=== PATIENT | female | born 1975 | race Caucasian/White ===

== ENCOUNTER → 2016-07-26 | Outpatient (CLI) | payer BC ==
--- NOTE | 2016-07-29 08:37 | MM ---
Reason for exam: screening (asymptomatic). Last mammogram was performed 1 year and 1 month ago. History: Family history of breast cancer in mother at age 38 and breast cancer in paternal grandmother. Physical Findings: A clinical breast exam by your physician is recommended on an annual basis and results should be correlated with mammographic findings. MG Screening Mammo w CAD Bilateral CC and MLO view(s) were taken. Prior study comparison: June 13, 2015, bilateral MG screening mammo w CAD. The breast tissue is heterogeneously dense. This may lower the sensitivity of mammography. There is no discrete abnormality. ASSESSMENT: Negative, BI-RAD 1 RECOMMENDATION: Routine screening mammogram of both breasts in 1 year.
== END | disposition home or self-care (01) ==
LOC: RADMAMWWP 08:58
PROVIDERS: ATTEND Obstetrics & Gynecology
DX: Z12.31 Encounter for screening mammogram for malignant neoplasm of breast (principal); Z80.3 Family history of malignant neoplasm of breast

== ENCOUNTER → 2017-09-17 | Outpatient (CLI) | payer BC ==
--- NOTE | 2017-09-19 08:37 | MM ---
Reason for exam: screening (asymptomatic). Last mammogram was performed 1 year and 2 months ago. History: Family history of breast cancer in mother at age 38 and breast cancer in paternal grandmother. Physical Findings: A clinical breast exam by your physician is recommended on an annual basis and results should be correlated with mammographic findings. MG 3D Screening Mammo W/Cad Bilateral CC and MLO view(s) were taken. Prior study comparison: July 26, 2016, bilateral MG screening mammo w CAD. June 19, 2015, bilateral MG 3d work up w/cad [id number]. The breast tissue is heterogeneously dense. This may lower the sensitivity of mammography. No suspicious abnormality. No significant changes when compared with prior studies. ASSESSMENT: Negative, BI-RAD 1 RECOMMENDATION: Routine screening mammogram of both breasts in 1 year.
== END | disposition home or self-care (01) ==
LOC: RADMAMWWP 09:17
PROVIDERS: ATTEND Obstetrics & Gynecology
DX: Z12.31 Encounter for screening mammogram for malignant neoplasm of breast (principal); Z80.3 Family history of malignant neoplasm of breast
CPT/HCPCS: 77063; 77067

== ENCOUNTER → 2022-01-17 | Outpatient (CLI) | payer OTHER ==
--- NOTE | 2022-01-18 09:37 | MM ---
Reason for Exam: Screening (asymptomatic). Last mammogram was performed 2 year(s) and 8 month(s) ago. Patient History: Menarche at age 15. First Full-Term at age 21. Premenopausal. Paternal grandmother had breast cancer. Mother had breast cancer, age 38. Last menstrual period: 12/18/2021 Risk Values: Chelo 5 year model risk: 1.4%. NCI Lifetime model risk: 17.3%. Prior Study Comparison: 07/26/2016 Bilateral Screening Mammogram, [facility]. 09/17/2017 Bilateral Screening Mammogram, [facility]. 05/19/2019 Bilateral Screening Mammogram, [facility]. Tissue Density: The breast tissue is heterogeneously dense. This may lower the sensitivity of mammography. Findings: Analyzed By CAD. There is no suspicious group of microcalcifications or new suspicious mass in either breast. Overall Assessment: Negative, BI-RAD 1 Management: Screening Mammogram of both breasts in 1 year. A clinical breast exam by your physician is recommended on an annual basis and results should be correlated with mammographic findings. [facility] will attempt to contact patient to return for supplemental views and ultrasound if indicated. Electronically signed and approved by: Kamari Rizo DO
== END | disposition home or self-care (01) ==
LOC: RADMAMWWP 09:57
PROVIDERS: ATTEND Obstetrics & Gynecology
DX: Z12.31 Encounter for screening mammogram for malignant neoplasm of breast (principal)
CPT/HCPCS: 77067

== ENCOUNTER → 2023-05-19 | Outpatient (CLI) | payer OTHER ==
--- NOTE | 2023-05-20 22:17 | MM ---
Reason for Exam: Screening (asymptomatic). Last mammogram was performed 1 year(s) and 4 month(s) ago. Patient History: Menarche at age 15. First Full-Term at age 21. Premenopausal. Paternal grandmother had breast cancer. Mother had breast cancer, age 38. Last menstrual period: 05/05/2023 Risk Values: Chelo 5 year model risk: 1.5%. NCI Lifetime model risk: 17.1%. Prior Study Comparison: 09/17/2017 Bilateral Screening Mammogram, [facility]. 05/19/2019 Bilateral Screening Mammogram, [facility]. 01/17/2022 Bilateral MG screening mammo w CAD, [facility]. Tissue Density: The breast tissue is heterogeneously dense. This may lower the sensitivity of mammography. Findings: Analyzed By CAD. There is no suspicious group of microcalcifications or new suspicious mass in either breast. Overall Assessment: Negative, BI-RAD 1 Management: Screening Mammogram of both breasts in 1 year. . Patient should continue monthly self-breast exams. A clinical breast exam by your physician is recommended on an annual basis. This exam should not preclude additional follow-up of suspicious palpable abnormalities. Note on Chelo scores and lifetime risk: 1. A Chelo score greater than 3% is considered moderate risk. If this is the case, consider specialist referral to assess eligibility for a risk reducing agent. 2. If overall lifetime risk for the development of breast cancer is 20% or higher, the patient may qualify for future screening with alternating mammogram and breast MRI. Electronically signed and approved by: Sushil Corey M.D. Radiologist
== END | disposition home or self-care (01) ==
LOC: RADMAMWWP 11:28
PROVIDERS: ATTEND Pediatrics
DX: Z12.31 Encounter for screening mammogram for malignant neoplasm of breast (principal); Z80.3 Family history of malignant neoplasm of breast
CPT/HCPCS: 77063; 77067